=== PATIENT | female | born 1985 | race Caucasian/White ===

== ENCOUNTER 2021-04-16 11:58 | Outpatient (CLI) | payer OTHER ==
[~2021-04-16] VITALS: Ht 162.6 cm; Wt 70.9 kg
[2021-04-16 12:43] VITALS: BP 118/61
[2021-04-16] MEDS ORDERED: ASPI-963 PO (12:55)
[2021-04-16] MEDS ORDERED: PREN1TAB10 PO (12:55)
== END 2021-04-16 13:54 | disposition home or self-care (01) ==
LOC: LDOP 11:58
PROVIDERS: ATTEND Obstetrics & Gynecology
DX: O30.003 Twin pregnancy, unspecified number of placenta and unspecified number of amniotic sacs, third trimester (principal); Z3A.34 34 weeks gestation of pregnancy
CPT/HCPCS: 59025